=== PATIENT | female | born 1960 | race Caucasian/White ===

== ENCOUNTER → 2022-03-24 | Outpatient (CLI) | payer OTHER ==
--- NOTE | 2022-03-24 12:47 | XR ---
EXAMINATION TYPE: XR lumbar spine 2 or 3V DATE OF EXAM: 03/24/2022 12:27 PM INDICATION: Patient age:Female; 61 years old; Reason for study: M54.50 Low Back pain; COMPARISON: None TECHNIQUE: Frontal and lateral views of the spine. FINDINGS: No evidence of any acute osseous pathology. No evidence of loss of vertebral body height i s seen. There is normal alignment of the lumbar vertebral bodies. Mild scattered disc space narrowing . Multilevel marginal osteophyte formation throughout the visualized spine. There is facet joint arth ropathy throughout the spine. Scattered at least mild neural foraminal stenosis. IMPRESSION: 1. No acute fracture. 2. Mild multilevel disc degeneration.
== END | disposition home or self-care (01) ==
LOC: RADXRMAIN 12:11
PROVIDERS: ATTEND Internal Medicine
DX: M51.36 Other intervertebral disc degeneration, lumbar region (principal)
CPT/HCPCS: 72100

== ENCOUNTER → 2022-03-31 | Outpatient (CLI) | payer OTHER ==
--- NOTE | 2022-03-31 14:45 | USB ---
Reason for Exam: Clinical finding. Patient History: Menarche at age 15. First Full-Term at age 24. Postmenopausal. Risk Values: Samanta 5 year model risk: 1.2%. NCI Lifetime model risk: 6.7%. Technique: Method: Whole Breast Handheld. Prior Study Comparison: 07/15/2006 Bilateral Screening Mammogram, [facility]. Findings: The whole breast of the right breast, the axilla of the right breast and the retroareolar of the right breast were scanned. A complete US of all four quadrants of the breast, axilla, and retro-areolar region were reviewed There is vague hypoechoic irregular area in the 7:00 periareolar region corresponding to the patient's palpable site. Somewhat better viewed with harmonics applied. Estimated measurements of 2.2 x 1.9 x 1.5 cm. Tissue sampling is recommended. No other solid or cystic lesion. A nonenlarged axillary lymph node measures 1.1 x 0.8 cm with cortex measuring 2 mm, acceptable. Overall Assessment: Suspicious, BI-RAD 4 Management: Ultrasound Core Biopsy of the right breast. For the vague, palpable region near the right nipple. Recommend surgical evaluation as well. There is associated nipple retraction and trabecular thickening on mammogram but without a discrete, well formed mass on mammogram. Results were given to the patient verbally at the time of exam. Electronically signed and approved by: Jassi Ayon M.D. Radiologist
--- NOTE | 2022-03-31 14:54 | MM ---
Reason for Exam: Clinical finding. Last mammogram was performed 15 year(s) and 9 month(s) ago. Indicated Problems: Lump or thickening of the right side for 1 Month(s). Patient History: Menarche at age 15. First Full-Term at age 24. Postmenopausal. Risk Values: Samanta 5 year model risk: 1.2%. NCI Lifetime model risk: 6.7%. Prior Study Comparison: 07/15/2006 Bilateral Screening Mammogram, [facility]. Tissue Density: There are scattered fibroglandular densities. Findings: Analyzed By CAD. Asymmetric trabecular thickening throughout the central and lateral aspect of the right breast. Slight nipple retraction on the right. There is a palpable marker also placed anteriorly at the right breast. No well-defined mass is identified. Further ultrasound evaluation is recommended. No significant change on the left side. Overall Assessment: Incomplete: need additional imaging evaluation, BI-RAD 0 Management: Diagnostic Breast Ultrasound of the right breast. Electronically signed and approved by: Jassi Ayon M.D. Radiologist
== END | disposition home or self-care (01) ==
LOC: RADMAMWWP 13:04
PROVIDERS: ATTEND Obstetrics & Gynecology
DX: N64.4 Mastodynia (principal); Z78.0 Asymptomatic menopausal state
CPT/HCPCS: 77062; 77066

== ENCOUNTER → 2022-04-08 | Day surgery (SDC) | payer OTHER ==
--- NOTE | 2022-04-08 15:33 | MM ---
Reason for Exam: Post Procedure Mammogram. Last screening mammogram was performed less than 1 month ago. Patient History: Menarche at age 15. First Full-Term at age 24. Postmenopausal. Risk Values: Samanta 5 year model risk: 1.2%. NCI Lifetime model risk: 6.7%. Prior Study Comparison: 07/15/2006 Bilateral Screening Mammogram, [facility]. 03/31/2022 Bilateral MG 3D diag mammo w/cad [facility], [facility]. Tissue Density: Right: There are scattered fibroglandular densities. Overall Assessment: Post procedure mammogram for marker placement Management: Post Mammogram for Juan Placement of the right breast. Electronically signed and approved by: Dylan Hughes DO
--- NOTE | 2022-04-15 09:38 | USB ---
Risk Values: Samanta 5 year model risk: 1.2%. NCI Lifetime model risk: 6.7%. Prior Study Comparison: 07/15/2006 Bilateral Screening Mammogram, [facility]. 03/31/2022 Bilateral MG 3D diag mammo w/cad [facility], [facility]. Pathology Description: Location: 7 o'clock. Marker Left Behind. Cores: 3 Skin Nicks: 1 Gauge: 18 The procedure of ultrasound guided core biopsy was explained to the patient. Benefits, alternatives, and risks were discussed. An informed consent was then obtained. The patient was placed in supine positioning for imaging and for the procedure. The overlying skin was prepped and draped in usual sterile fashion. Lidocaine buffered with bicarbonate was used as anesthetic into the skin and subcutaneous tissue up to area of concern in the right breast. A madelin was made with surgical scalpel. Under ultrasound guidance, a 18-gauge biopsy device was used to obtain 4 core samples. Following this, a biopsy clip was left in lesion. The patient tolerated the procedure well without any immediate complication. The patient was kept in the radiology department for short stay after the procedure and then discharged home in stable condition. Postprocedure mammogram: The patient was transferred to mammography for physician ordered post procedure mammogram for clip placement verification. Impression: Successful, uncomplicated ultrasound guided core biopsy of area of concern in the right breast, full pathology results to follow. Pathology Results: Result: Malignant, Invasive lobular carcinoma. RIGHT BREAST, ULTRASOUND GUIDED NEEDLE CORE BIOPSY: Invasive lobular carcinoma. See Surgical Pathologic Cancer Case Summary and Comment. Overall Assessment: Malignant Management: Surgical Consultation of the right breast. Electronically signed and approved by: Dylan Hughes DO
== END ==
LOC: RADUSWWP 12:50
PROVIDERS: ATTEND Surgery
DX: C50.911 Malignant neoplasm of unspecified site of right female breast (principal)
CPT/HCPCS: 88305; 88342; 88341; 77065; 19083; A4648

== ENCOUNTER 2022-07-13 06:58 | Day surgery (SDC) | payer BC, OTHER ==
[~2022-07-13 06:58] MED LIST: ACETAMINOPHEN TAB 500 MG TAB PO PRN; DEXAMETHASONE SOD PHOSPHATE 4 MG/ML 1 ML VIAL IV ONE; HEPARIN SODIUM,PORCINE/PF 5,000 UNIT/0.5 ML SYRINGE SQ PRN; LIDOCAINE 1% (10MG/ML) FOR IV START INTRADERMA PRN; MIDAZOLAM 2 MG/2 ML VIAL IV PRN; ONDANSETRON 4 MG/2 ML VIAL IVP ONE; Pre Op ABX Message 1 EACH MISC MISCELLANE ONE
--- NOTE | 2022-07-13 07:22 | P.GSHP ---
History of Present Illness H&P Date: 07/13/22 Chief Complaint: Right breast cancer 61-year-old female known to our service. Patient was diagnosed in March of this year with ER/[place] positive right-sided breast cancer. Pathology showed invasive lobular carcinoma. This was for 2 negative. Radiology studies confirm this to be a large area involving significant volume of the breast. Patient underwent neoadjuvant therapy. Here today for elective surgical resection. No adenopathy seen on ultrasound, physical exam, or on MRI. Past Medical History Past Medical History: Cancer Additional Past Medical History / Comment(s): recent breast cancer dx. right side History of Any Multi-Drug Resistant Organisms: None Reported Past Surgical History: Section Additional Past Surgical History / Comment(s): D & C Past Anesthesia/Blood Transfusion Reactions: Motion Sickness, Postoperative Nausea & Vomiting (PONV) Smoking Status: Never smoker Medications and Allergies Home Medications Medication Instructions Recorded Confirmed Type Tamoxifen [Nolvadex] 20 mg PO DAILY 07/07/22 07/07/22 History Allergies Allergy/AdvReac Type Severity Reaction Status Date / Time Penicillins Allergy Rash/Hives Verified 07/07/22 16:01 Sulfa (Sulfonamide Allergy Swelling Verified 07/07/22 16:01 Antibiotics) Surgical - Exam Physical exam: General: Well-developed, well-nourished HEENT: Normocephalic, sclerae nonicteric Right breast: Mild tenderness outer quadrants, no discrete mass, no adenopathy Left breast: No masses, no adenopathy Abdomen: Nontender, nondistended Extremities: No edema Neuro: Alert and oriented Assessment and Plan (1) Breast cancer, right breast Narrative/Plan: 61-year-old female with right breast invasive lobular carcinoma. We'll proceed with bilateral skin sparing mastectomy with sentinel lymph node biopsy/injection on the right-hand side with concurrent reconstruction by plastic surgery. Current Visit: Yes Status: Acute Code(s): C50.911 - MALIGNANT NEOPLASM OF UNSP SITE OF RIGHT FEMALE BREAST SNOMED Code(s): 665931887
--- NOTE | 2022-07-13 07:27 | P.NAPBC ---
NAPBC Queries - NAPBC Queries Was patient's case review presented at [facility] tumor board? If no, comment.: Yes Was patient's pathology reviewed at [facility]? If no, comment.: Yes Was breast conservation surgery offered? If no, comment.: Yes Was sentinel node biopsy offered? If no, comment.: Yes Was diagnosis confirmed by percutaneous core biopsy? If no, comment.: Yes Is patient mastectomy patient?: Yes Was a preop referral to reconstructive surgeon offered?: Yes Clinical Stage: 2
[2022-07-13] MEDS: LACTATED RINGERS 1,000 ML IV SCH (07:52)
[2022-07-13 08:03] LABS: Basophils % (A) 1 %; Eosinophils # (A) 0.3 k/uL (0-0.7); Eosinophils % (A) 4 %; HCT 39.4 % (34.0-46.0); HGB 12.6 gm/dL (11.4-16.0); Lymphocytes # (A) 2.4 k/uL (1.0-4.8); Lymphocytes % (A) 35 %; MCH 28.7 pg (25.0-35.0); MCV 89.9 fL (80.0-100.0); Mean Platelet Volume 7.7; Monocytes # (A) 0.3 k/uL (0-1.0); Monocytes % (A) 4 %; Neutrophils # (A) 3.6 k/uL (1.3-7.7); Neutrophils % (A) 54 %; Platelet Count 257 k/uL (150-450); RBC 4.38 m/uL (3.80-5.40); RDW 12.7 % (11.5-15.5); WBC 6.7 k/uL (3.8-10.6)
[2022-07-13] MEDS ORDERED: SCOPOLAMINE 1 MG/72 HR PATCH TRANSDERM ONE (08:08)
[2022-07-13 08:19] LABS: African American GFR (CKD) >90 (>60 ml/min/1.73 sqM); Anion Gap 6 mmol/L; Blood Urea Nitrogen 14 mg/dL (7-17); Calcium 9.2 mg/dL (8.4-10.2); Carbon Dioxide 29 mmol/L (22-30); Chloride 105 mmol/L (98-107); Glucose 94 mg/dL (74-99); Non-African American GFR(CKD) 87 (>60 ml/min/1.73 sqM); Potassium 4.1 mmol/L (3.5-5.1); Sodium 140 mmol/L (137-145)
[2022-07-13] MEDS ORDERED: MIDAZOLAM 2 MG/2 ML VIAL IVP ONE (08:31)
[2022-07-13] MEDS ORDERED: LIDOCAINE 2% INJ 20 MG/ML (2 ML VIAL) ONE (08:48)
[2022-07-13] MEDS ORDERED: ceFAZolin 1,000 MG VIAL ONE (08:48)
[2022-07-13] MEDS ORDERED: fentaNYL (PF) 50 MCG/ML 2 ML AMP ONE (08:48)
[2022-07-13] MEDS ORDERED: ROCURONIUM 10 MG/ML (5 ML VIAL) IV ONE (08:48)
[2022-07-13] MEDS ORDERED: SUCCINYLCHOLINE CHLORIDE 200 MG/10 ML VIAL IV ONE (08:48)
[2022-07-13] MEDS ORDERED: SODIUM CHLORIDE 0.9% 100 ML BAG ONE (08:48)
[2022-07-13] MEDS ORDERED: PROPOFOL 10 MG/ML 20 ML VIAL IV ONE (08:48)
[2022-07-13] MEDS ORDERED: MIDAZOLAM 2 MG/2 ML VIAL ONE (08:48)
--- NOTE | 2022-07-13 08:56 | NM ---
EXAMINATION TYPE: NM sentinel node injection DATE OF EXAM: 07/13/2022 COMPARISON: NONE HISTORY: Right-sided breast cancer TECHNIQUE AND FINDINGS: The procedure of sentinel lymph node injection was explained to the patient. The benefits, alternatives, and risks were discussed. An informed consent was then obtained. Overlying skin is cleaned with sterile alcohol. Following this, 481 uCi Tc99m Tilmanocept was inject ed in the upper outer aspect of the right nipple intradermally. The patient tolerated the procedure well without any immediate complication. The patient was kept in the radiology department for short stay after the procedure and then taken to surgery for surgical p rocedure what is presumed intraoperative gamma probe will be used for sentinel lymph node detection. IMPRESSION: Right breast radiotracer injection for sentinel node localization as above.
[2022-07-13] MEDS ORDERED: LACTATED RINGERS 1,000 ML IV ONE (10:44)
[2022-07-13] MEDS ORDERED: HYDROmorphone 0.5 MG/0.5 ML SYRINGE IVP PRN (11:24)
[2022-07-13] MEDS ORDERED: traMADol 50 MG TAB PO PRN (11:24)
[2022-07-13] MEDS ORDERED: ONDANSETRON 4 MG/2 ML VIAL IVP PRN (11:24)
[2022-07-13] MEDS ORDERED: HYDROmorphone 1 MG/ML 1 ML SYRINGE IVP PRN (11:24)
[2022-07-13] MEDS ORDERED: NALOXONE 0.4 MG/ML 1 ML VIAL IV PRN (11:24)
[2022-07-13] MEDS ORDERED: HYDROcodone/APAP 5-325MG 1 EACH TAB PO PRN (11:24)
--- NOTE | 2022-07-13 11:35 | P.OP ---
Date of Procedure: 07/13/22 Procedure(s) Performed: PREOPERATIVE DIAGNOSIS: Right breast cancer POSTOPERATIVE DIAGNOSIS: Same PROCEDURE: Bilateral skin sparing mastectomy with sentinel lymph node biopsy right and breast with concurrent reconstruction SURGEON: Janes EBL: Simin record ANESTHESIA: General COMPLICATIONS: None OPERATIVE PROCEDURE: Patient was placed on the operating room table in the supine position. 2 mL of methylene blue was injected into the right subareolar space. The breast was then massaged for 5 minutes. The upper torso anteriorly was prepped and draped in usual sterile fashion. The left side was first addressed. A skin marker was used to draw out a circular incision around the areola. This incision was then made using the scalpel. Dissection through the subcutaneous tissues took place using electrocautery down to the chest wall circumferentially. The breast was removed from the chest wall at that time. The Ligaclip and clip supervisor claims was used for small visible vessels. No bleeding was encountered. Dr. Mcarthur from plastic surgery then took over on the left chest wall to begin his reconstruction with tissue expanders. The right side was then addressed. A small curvilinear incision in the right axilla took place over the hot spot identified by neoprobe. The subcutaneous tissues were divided using electrocautery and blunt dissection. A total of 4 hot lymph nodes were identified and removed. One of these was blue in color. 2 of the portions of tissue appeared more fatty in nature and may have simply been lymphatics. Grossly these appeared normal. These were sent for permanent sectioning. Subcutaneous tissues at the right axillary incision was closed using 3-0 Vicryl sutures. The skin was closed using a running 3-0 Monocryl suture. In a similar fashion the skin marker was used to draw out the proposed incision around the areola in the right periareolar location. The incision was incised using a scalpel. The skin hooks were utilized and the flaps were raised circumferentially using electrocautery down to the chest wall. The breast was again removed from the chest wall using electrocautery. Small vessels were ligated using the clip supervisor claims or ligature. No bleeding was seen. The right chest wall was then again handed off to Dr. Mcarthur for formal closure and tis marie technical service representative placement. At that point I exited the room. The family was informed of the progress of surgery. DISPOSITION: Patient to remain in the operating for completion and closure by Dr. Mcarthur.
[2022-07-13] MEDS: HYDROmorphone 0.5 MG/0.5 ML SYRINGE IVP PRN ×2 (12:39→13:09)
[2022-07-13] MEDS: D5-0.45% NACL WITH KCL 20MEQ/L 1,000 ML IV SCH (14:28)
[2022-07-13] MEDS: HEPARIN SODIUM,PORCINE/PF 5,000 UNIT/0.5 ML SYRINGE SQ SCH (16:53)
--- NOTE | 2022-07-13 18:47 | OP ---
OPERATIVE REPORT DATE OF SERVICE : 07/13/2022 PREOPERATIVE DIAGNOSES: 1. Acquired loss, right and left breast. 2. Right breast cancer. POSTOPERATIVE DIAGNOSES: 1. Acquired loss, right and left breast. 2. Right breast cancer. PROCEDURES PERFORMED: 1. Immediate reconstruction, left breast following mastectomy with insertion of tissue change management lead and subsequent outpatient expansion. 2. Immediate reconstruction, right breast following mastectomy with insertion of tissue change management lead and subsequent outpatient expansion. 3. Implantation of reconstructive graft for right and left breast reconstruction. INDICATIONS FOR PROCEDURE: The patient is a 61-year-old female with lobular carcinoma of the right breast. She plans to undergo bilateral mastectomy procedures and desires breast reconstruction at the time of her mastectomies. She has been seen and evaluated in consultation in my office and is aware of potential risks and complications related to the surgery including but not limited to seroma, hematoma, and wound healing problems among others. She is also aware of the staged nature of breast reconstructive surgery and the requirement for implant placement after tissue expanders to complete the reconstructive surgery. She has requested I perform the surgery. DESCRIPTION OF PROCEDURE: The patient was seen in the preoperative area. Markings were made. Procedure was reviewed. All questions were answered. She was transported to the operating room, where she was placed in supine position. Following induction of general endotracheal anesthesia, the patient was prepped and draped in usual fashion. Dr. Marrero and his team proceeded with the left-sided mastectomy procedure. Once that was completed, Dr. Marrero and his team proceeded with the right-sided sentinel lymph node excision and mastectomy procedures while I entered the surgery and began the left breast reconstruction. The left mastectomy wound was open. The mastectomy had been performed through a circumareolar approach. The cavity was irrigated. There was no active bleeding. The skin flaps were inspected. They demonstrated excellent viability. At this point, I elected to proceed with a prepectoral style reconstruction. The cavity was measured. Additional dissection was required for optimal positioning of the tissue change management lead, and dissection was performed with cautery where necessary. The cavity was re- sized, and a tissue change management lead was opened onto the field. Both expanders opened today were the same, from the TopiVert tissue change management lead line, model 104S-HR-71-T with a 450 mL volume. The left-sided serial number was [id number], and later when opened, the right- sided serial number was [id number]. The expanders were only handled by the surgeon. The left-sided change management lead was opened. It was irrigated with saline, and all air was extracted. Initially, 300 mL of air was instilled into the device, and it was placed in the left reconstructive cavity for test fit. However, this was too much volume to allow for closure and optimal positioning. The air was reduced to 200 mL on the left, and this appeared optimal for closure and positioning. The change management lead was removed, irrigated. SurgiMend PRS reconstructive graft, thinned and meshed, was opened on the field measuring 15 x 15 cm. The SurgiMend was revitalized in room temperature saline and pre-stretched, and once ready, the SurgiMend was used to cover all anterior surfaces of the tissue change management lead securing to the 6 suture tabs individually with 3-0 Vicryl sutures. As I was observing the procedure proceeding on the right as far as the mastectomy skin flaps, again they had excellent health and appearance of skin flaps. The second change management lead was opened for prepectoral reconstruction. The serial number for the right-sided change management lead was stated above. The change management lead was only handled by the surgeon. All air was extracted. 200 mL of air was instilled. A second piece of SurgiMend reconstructive graft, SurgiMend PRS, measuring 15 x 15 square centimeters was opened on the field. The graft was meshed and tinned. The graft was revitalized in room temperature saline. Once ready, pre-stretched and then secured to the right-sided tissue change management lead covering the anterior surfaces securing the graft to the change management lead in the 6 suture tab locations using 3-0 Vicryl suture. Once the sentinel lymph node mastectomy procedure was completed on the right, both cavities were inspected. Test fitting was performed on the right side with the change management lead, and additional dissection was required to optimize positioning of the change management lead. This was performed with cautery with the change management lead removed. The change management lead was re-irrigated and inserted into the reconstructive cavity. The fit was excellent. The right-sided change management lead was now secured to the chest wall in 6-point locations using the suture tabs with 2-0 Vicryl suture. The left-sided change management lead was inserted into the reconstructive cavity. Once optimally positioned, it was secured to the chest wall in the 6 suture tab locations using 2-0 Vicryl sutures. 19 roslyn Mclean channel drains were opened on the field and inserted into the reconstructive cavity on the right and left sides, brought through separate stab incisions in the anterolateral chest wall, and sutured in place with 3-0 Prolene on each side. The circumareolar incisions for the mastectomy appeared healthy. The wound edges were healthy. A deep layer of subcutaneous tissue was loosely approximated using 4-0 Monocryl here, and then the circumareolar incision was closed in a [place] as a pursestring using 2-0 Prolene deep dermal suture. This was followed by finer approximation of the superficial dermis and epidermis with inverted interrupted 4- 0 Monocryl and then placing renetta. The surgical torrez were cleansed with saline, dried, and covered with postoperative bandages using bacitracin ointment and Kerlix squares secured with 3M Medipore tape. Drain sponges were positioned, and the drains were connected to close bulb suction and patent. A size 2 mammary support was then positioned prior to awakening the patient. The patient was then awakened from her anesthetic, extubated, and transferred to the recovery room in good condition with stable vital signs. The estimated blood loss for this portion of the procedure was 25 mL. Each change management lead was filled to a volume of 200 mL with air. There were no complications. MMODL / IJN: [id number] /
[2022-07-13] MEDS: ACETAMINOPHEN TAB 325 MG TAB PO PRN (21:06)
[2022-07-13] MEDS: FAMOTIDINE 20 MG TAB PO SCH (21:07)
[2022-07-13] MEDS: DOCUSATE 100 MG CAP PO SCH (21:07)
[2022-07-14 00:04] VITALS: RESP 16
[2022-07-14] MEDS: HEPARIN SODIUM,PORCINE/PF 5,000 UNIT/0.5 ML SYRINGE SQ SCH ×2 (00:10→08:04)
[2022-07-14] MEDS: D5-0.45% NACL WITH KCL 20MEQ/L 1,000 ML IV SCH (04:41)
[2022-07-14] MEDS: LACTATED RINGERS 1,000 ML IV SCH (07:43)
[2022-07-14] MEDS: FAMOTIDINE 20 MG TAB PO SCH (08:04)
[2022-07-14] MEDS: DOCUSATE 100 MG CAP PO SCH (08:04)
[2022-07-14] MEDS: ACETAMINOPHEN TAB 325 MG TAB PO PRN ×2 (08:04→14:03)
[2022-07-14 08:20] VITALS: BP 101/63; PULSE 86; TEMP 99.2
--- NOTE | 2022-07-14 14:42 | P.DS ---
Providers Expected date of discharge: 07/14/22 Attending physician: Yury Marrero Consults: 07/13/22 11:24 Consult Physician Routine Consulting Provider: Frank Piña Consult Reason/Comments: med mgmt Do you want consulting provider notified?: Yes Primary care physician: Lisset Wei Hospital Course: Discharge diagnosis 1. Right breast cancer status post Bilateral skin sparing mastectomy with sentinel lymph node biopsy right and breast with concurrent reconstruction Hospital course This is a 61-year-old female with a known history of right breast cancer. She is status post Bilateral skin sparing mastectomy with sentinel lymph node biopsy right and breast with concurrent reconstruction surgery with Dr. Mcarthur. Patient reports her pain is controlled. She is tolerating diet. She is afebri le. Her surgical sites are clean, dry and intact. Skin is healthy and pink color. Patient is stable for discharge. Please refer to chart for any further details. Physician Commuter Train Operator note has been reviewed by physician. Signing provider agrees with the documented findings, assessment, and plan of care. Patient Condition at Discharge: Stable Plan - Discharge Summary Discharge Rx Participant: Yes New Discharge Prescriptions: New traMADol HCl [Ultram] 50 mg PO Q6HR PRN 3 Days #12 tab PRN Reason: Pain Acetaminophen Tab [Tylenol Tab] 650 mg PO Q4H PRN #30 tablet PRN Reason: Pain Continue Tamoxifen [Nolvadex] 20 mg PO DAILY Discharge Medication List Tamoxifen [Nolvadex] 20 mg PO DAILY 07/07/22 [History] Acetaminophen Tab [Tylenol Tab] 650 mg PO Q4H PRN #30 tablet 07/14/22 [Rx] traMADol HCl [Ultram] 50 mg PO Q6HR PRN 3 Days #12 tab 07/14/22 [Rx] Follow up Appointment(s)/Referral(s): Yury Marrero MD [Medical Doctor] - 1 Week Jesus Mcarthur MD [STAFF PHYSICIAN] - 07/17/22 Activity/Diet/Wound Care/Special Instructions: No driving while taking Ultram No lifting over 10 pounds No showers until seen by plastic surgeon. No soaking or tub baths for 2 weeks Very light activity until you are reevaluated at your follow up appointment with your surgeon Keep a log of BILLIE drain output and bring with you to your follow-up appointment Milk/strip drains 2-3 times a day Discharge Disposition: HOME SELF-CARE
--- NOTE | 2022-07-14 14:42 | P.CONS ---
History of Present Illness - Reason for Consult Consult date: 07/14/22 medical management Requesting physician: Yury Marrero - History of Present Illness A pleasant 61-year-old female who admitted for elective bilateral mastectomy with reconstructive surgery. Patient has no significant past medical history was found to have a right breast lump ultimately was found to have right breast cancer. Patient is postoperative day #1 bilateral mastectomy and reconstructive surgery. Patient is evaluated today on the medical floor. She is sitting up in chair, reports on shortness of breath and is having minimal surgical pain. Patient has been tolerating regular diet and reports passing gas. She has been up ambulating to the restroom without difficulty. Patient has had previous issues with n/v after anesthesia. Patient reports no issues no nausea or vomiting. Labs are unremarkable. Patient had a mild hypotension postoperatively with a systolic blood pressure in the 90s x1 which is improving. No dizziness or lightheadedness noted. Patient has been cleared for discharge by primary today. Medically she is stable to go. REVIEW OF SYSTEMS: CONSTITUTIONAL: No fever, no malaise, no fatigue. HEENT: No recent visual problems or hearing problems. Denied any sore throat. CARDIOVASCULAR: No chest pain, orthopnea, PND, no palpitations, no syncope. PULMONARY: No shortness of breath, no cough, no hemoptysis. GASTROINTESTINAL: No diarrhea, no nausea, no vomiting, no abdominal pain. NEUROLOGICAL: No headaches, no weakness, no numbness. HEMATOLOGICAL: Denies any bleeding or petechiae. GENITOURINARY: Denies any burning micturition, frequency, or urgency. MUSCULOSKELETAL/RHEUMATOLOGICAL: Denies any joint pain, swelling, or any muscle pain. ENDOCRINE: Denies any polyuria or polydipsia. The rest of the 14-point review of systems is negative. PHYSICAL EXAMINATION: GENERAL: The patient is alert and oriented x3, not in any acute distress. Well developed, well nourished. HEENT: Pupils are round and equally reacting to light. EOMI. No scleral icterus. No conjunctival pallor. Normocephalic, atraumatic. No pharyngeal erythema. No thyromegaly. CARDIOVASCULAR: S1 and S2 present. No murmurs, rubs, or gallops. PULMONARY: Chest is clear to auscultation, no wheezing or crackles. ABDOMEN: Soft, nontender, nondistended, normoactive bowel sounds. No palpable organomegaly. MUSCULOSKELETAL: No joint swelling or deformity. EXTREMITIES: No cyanosis, clubbing, or pedal edema. NEUROLOGICAL: Gross neurological examination did not reveal any focal deficits. SKIN: No rashes. 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 Medically she is stable and recommend close follow up on discharge. Patient encourage to increase activity level and continue to use incentive spirometer. Thank you kindly for this consultation. The impression and plan of care has been dictated by Amber Lenz Nurse Practitioner as directed. Dr. Issa MD I have performed a history and physical examination and medical decision making of this patient, discussed the same with the dictator, and agree with the dictators assessment and plan as written, documented as a scribe. Based on total visit time, I have performed more than 50% of this visit. Past Medical History Past Medical History: Cancer Additional Past Medical History / Comment(s): recent breast cancer dx. right side History of Any Multi-Drug Resistant Organisms: None Reported Past Surgical History: Section Additional Past Surgical History / Comment(s): D & C Past Anesthesia/Blood Transfusion Reactions: Motion Sickness, Postoperative Nausea & Vomiting (PONV) Past Psychological History: No Psychological Hx Reported Smoking Status: Never smoker Past Alcohol Use History: Rare Past Drug Use History: None Reported - Past Family History Father Family Medical History: No Reported History Medications and Allergies Home Medications Medication Instructions Recorded Confirmed Type Tamoxifen [Nolvadex] 20 mg PO DAILY 07/07/22 07/07/22 History Acetaminophen Tab [Tylenol Tab] 650 mg PO Q4H PRN #30 tablet 07/14/22 Rx traMADol HCl [Ultram] 50 mg PO Q6HR PRN 3 Days #12 tab 07/14/22 Rx Allergies Allergy/AdvReac Type Severity Reaction Status Date / Time Penicillins Allergy Rash/Hives Verified 07/13/22 07:38 Sulfa (Sulfonamide Allergy Swelling Verified 07/13/22 07:38 Antibiotics) Physical Exam Vitals: Vital Signs Temp Pulse Resp BP BP Pulse Ox 07/14/22 08:00 99.2 F 86 16 101/63 99 07/13/22 23:59 98.0 F 62 16 97/59 98 07/13/22 16:00 97.9 F 68 17 106/64 98 07/13/22 15:30 71 15 106/64 97 07/13/22 15:00 82 16 121/73 07/13/22 14:45 98.0 F 61 16 121/75 98 07/13/22 14:30 63 16 132/86 07/13/22 14:15 67 16 116/79 99 07/13/22 14:00 97.2 F L 72 16 144/78 97 07/13/22 13:20 70 16 121/60 100 07/13/22 13:02 73 16 127/64 98 07/13/22 12:47 67 16 133/60 99 07/13/22 12:32 74 16 138/72 100 07/13/22 12:17 78 16 142/68 99 07/13/22 12:02 97.2 F L 76 16 138/65 100 Intake and Output 07/13/22 07/14/22 07/14/22 22:59 06:59 14:59 Intake Total 400 Output Total 675 740 Balance -675 400 -740 Intake: Oral 400 Output: Drainage 25 40 Left 15 20 Right BILLIE 10 20 Urine 650 700 Other: # Voids 1 2 Results CBC & Chem 7: 07/13/22 07:52 07/13/22 07:52 Assessment and Plan Time with Patient: Less than 30
== END 2022-07-14 15:45 | disposition home or self-care (01) ==
LOC: OR 06:58 → 4FBP 12:02 → OR 07-14 15:45
PROVIDERS: ATTEND Surgery
DX: C50.911 Malignant neoplasm of unspecified site of right female breast (principal); Z17.0 Estrogen receptor positive status [ER+]; Z88.0 Allergy status to penicillin; Z88.2 Allergy status to sulfonamides; Z79.899 Other long term (current) drug therapy; Z82.49 Family history of ischemic heart disease and other diseases of the circulatory system; Z80.1 Family history of malignant neoplasm of trachea, bronchus and lung
CPT/HCPCS: 19357; 38525; 97110; 97162; 80048; 85025; 38792; C1889; J2250; J0330; J1100; J2405; J0690; J3010; J1170 ×2; J2704; J1644 ×2; J2001; 88307; 88341; 88342

== ENCOUNTER → 2023-06-01 | Outpatient (CLI) | payer BC ==
--- NOTE | 2023-06-01 19:18 | BD ---
EXAMINATION TYPE: Axial Bone Density DATE OF EXAM: 06/01/2023 CLINICAL HISTORY: 62 years old Female. ICD-10 CODE: C50.111 CARCINOMA OF CENTRAL PORTION OF RIGHT BR EAST Height: 67.25 Weight: 149 FRAX RISK QUESTIONS: Family History (Parent hip fracture): yes History of Fracture in Adulthood: no Secondary Osteoporosis: no RISK FACTORS HISTORY OF: Surgery to Spine/Hip(right/left)/Wrist (right/left): no MEDICATIONS: Thyroid Medications: no Osteoporosis Medications: no EXAM MEASUREMENTS: Bone mineral densitometry was performed using the Ondax System. Bone mineral density as measured about the Lumbar spine is: ----- L1-L4(G/cm2): 1.288 T Score Values are as follows: ----- L1: 0.9 ----- L2: 1.1 ----- L3: 0.7 ----- L4: 0.7 ----- L1-L4: 0.9 Z Score Values are as follows: ----- L1: 2.1 ----- L2: 2.3 ----- L3: 1.9 ----- L4: 1.9 ----- L1-L4: 2.1 Bone mineral density baseline Bone mineral density about the R hip (g/cm2): 0.875 Bone mineral density about the L hip (g/cm2): 0.917 T Score values are as follows: -----R Neck: -1.8 -----L Neck: -1.7 -----R Total: -1.1 -----L Total: -0.7 Z Score values are as follows: -----R Neck: -0.6 -----L Neck: -0.5 -----R Total: -0.2 -----L Total: 0.2 Bone mineral density baseline FRAX%s: The graph provided illustrates a 8.9% chance for a major osteoporotic fx and a 1.0% chance fo r the hips probability for fx in 10 years time. IMPRESSION: Osteopenia (T Score between -2.5 and -1). There is slightly increased risk of fracture and the patient may be considered for treatment. Re-Screen 2-5 years. NOTE: T-SCORE=SD OF THE YOUNG ADULT MEAN.
== END | disposition home or self-care (01) ==
LOC: RADBDWWP 14:49
PROVIDERS: ATTEND Internal Medicine
DX: M85.89 Other specified disorders of bone density and structure, multiple sites (principal); C50.111 Malignant neoplasm of central portion of right female breast
CPT/HCPCS: 77080

== ENCOUNTER → 2023-07-29 | Outpatient (CLI) | payer BC ==
--- NOTE | 2023-07-29 14:01 | XR ---
EXAMINATION TYPE: XR chest 2V DATE OF EXAM: 07/29/2023 COMPARISON: NONE TECHNIQUE: PA and lateral views submitted. HISTORY: Presurgical testing FINDINGS: The lungs are clear and there is no pneumothorax, pleural effusion, or focal pneumonia. Heart size normal and no overt failure. Osseous structures demonstrate hypertrophic and degenerative changes of the spine. Emphysematous changes. Postsurgical change overlying the breasts. Mild osteopenia. IMPRESSION: 1. No acute process.
== END | disposition home or self-care (01) ==
LOC: LABWHC1 13:06
PROVIDERS: ATTEND Anesthesiology
DX: Z01.818 Encounter for other preprocedural examination (principal); C50.919 Malignant neoplasm of unspecified site of unspecified female breast
CPT/HCPCS: 71046

== ENCOUNTER 2023-08-02 10:15 | Day surgery (SDC) | payer BC ==
[~2023-08-02 10:15] MED LIST changes: -ACETAMINOPHEN TAB 500 MG TAB PO PRN; -DEXAMETHASONE SOD PHOSPHATE 4 MG/ML 1 ML VIAL IV ONE; -HEPARIN SODIUM,PORCINE/PF 5,000 UNIT/0.5 ML SYRINGE SQ PRN; -MIDAZOLAM 2 MG/2 ML VIAL IV PRN; -ONDANSETRON 4 MG/2 ML VIAL IVP ONE; -Pre Op ABX Message 1 EACH MISC MISCELLANE ONE; +droPERidol 5 MG/2 ML VIAL IVP PRN
[2023-08-02] MEDS: LACTATED RINGERS 1,000 ML IV SCH (11:00)
[2023-08-02] MEDS: ONDANSETRON 4 MG/2 ML VIAL IVP ONE ×2 (11:05→14:02)
[2023-08-02] MEDS: DEXAMETHASONE SOD PHOSPHATE 4 MG/ML 1 ML VIAL IV ONE (11:05)
[2023-08-02 11:08] VITALS: TEMP 97.8
[2023-08-02] MEDS: SCOPOLAMINE 1 MG/72 HR PATCH TRANSDERM ONE (11:22)
[2023-08-02] MEDS ORDERED: SUCCINYLCHOLINE CHLORIDE 200 MG/10 ML VIAL IV ONE (11:23)
[2023-08-02] MEDS ORDERED: PROPOFOL 10 MG/ML 20 ML VIAL IV ONE (11:23)
[2023-08-02] MEDS ORDERED: fentaNYL (PF) 50 MCG/ML 2 ML AMP ONE (11:23)
[2023-08-02] MEDS ORDERED: MIDAZOLAM 2 MG/2 ML VIAL ONE (11:23)
[2023-08-02] MEDS ORDERED: LIDOCAINE 1% INJ 10MG/ML (20 ML MDV) ONE (11:23)
[2023-08-02] MEDS: CLINDAMYCIN 900 MG in DEXTROSE 5% IN WATER 50 ML IVPB STA (11:25)
[2023-08-02] MEDS: HYDROmorphone 0.5 MG/0.5 ML SYRINGE IVP PRN (13:17)
[2023-08-02] MEDS ORDERED: HYDROcodone/APAP 5-325MG 1 EACH TAB PO STA (13:38)
[2023-08-02] MEDS ORDERED: ONDANSETRON 4 MG/2 ML VIAL ONE (14:02)
[2023-08-02] MEDS: DEXAMETHASONE SOD PHOSPHATE 4 MG/ML 1 ML VIAL IVP ONE (14:04)
[2023-08-02 15:03] VITALS: BP 120/74; PULSE 64; RESP 17
--- NOTE | 2023-08-02 21:09 | OP ---
OPERATIVE REPORT DATE OF SERVICE : 08/02/2023 PREOPERATIVE DIAGNOSES: 1. Acquired loss right and left breast. 2. Personal history of breast cancer, right breast. 3. Acquired deformity, right and left reconstructed breast. 4. Acquired loss right and left breast inframammary fold. 5. Delayed effects of radiation therapy, right breast. POSTOPERATIVE DIAGNOSES: 1. Acquired loss right and left breast. 2. Personal history of breast cancer, right breast. 3. Acquired deformity, right and left reconstructed breast. 4. Acquired loss right and left breast inframammary fold. 5. Delayed effects of radiation therapy, right breast. OPERATIVE PROCEDURES: 1. Replacement of right breast tissue counter installer with silicone breast implant for right breast reconstruction. 2. Revision of right reconstructed breast. 3. Replacement of left reconstructed breast tissue counter installer with silicone breast implant for left breast reconstruction. 4. Revision of left reconstructed breast. 5. Reconstruction right and left breast inframammary fold via local advancement flap, 63 sq cm. OPERATIVE INDICATIONS: The patient is a 62-year-old female who has undergone therapeutic mastectomy of the right breast and prophylactic mastectomy of the left breast for treatment of invasive cancer of the right breast. She required chemotherapy as well as radiation treatments. At the time of her mastectomy procedure, initiated breast reconstruction and a tissue counter installer technique was initiated. She did complete expansion prior to radiation treatments, but then required some additional expansion after radiation therapy as well. She has also waited over 6 months to proceed with today's surgery. In this stage of the reconstruction, the expanders were placed with silicone breast implants. The patient is aware of potential risks and complications related to silicone breast implants. Additionally, revision of the breast, optimize shape and form and reconstruction of inframammary folds will be accomplished. She is aware of potential risks and complications related to surgery such as hematoma, seroma, infection, wound healing problems, among others. She has requested perform the surgery. OPERATIVE PROCEDURE SUMMARY: The patient was seen is in the preoperative area, markings made, procedure reviewed. All questions answered. She was transported to the operating room, where she was placed in supine position. Following induction of general endotracheal anesthesia, the patient was prepped and draped in usual fashion. Remaining on the right side and following the transverse incision at the mastectomy scars site that was marked preoperatively, incision made, dividing the skin in full-thickness fashion using scalpel and then using cauterization device. Subcutaneous tissue until identifying the underlying graft layer. Skin and subcutaneous tissue flaps were elevated off the graft layer. Extensive dissection required to release contour irregularities and optimize shape and form with placement of implant. With this extensive dissection completed, incision was made in transverse fashion through the capsular layer exposing the counter installer. Second incision was made transverse but offset inferiorly by several centimeters. The counter installer was removed, intact. The expansion cavity appeared normal with no granulation tissue. No exudates with some serous fluid. Complete capsulotomy incision was made where the capsule joined the chest wall, the multiple cruciate incisions through the capsular structure to release tightness. Additional dissection was required superiorly, medially, and lateral to optimize the space for a breast implant. The hemostasis maintained with cautery. Irrigation was performed with saline. Excellent hemostasis was present. The site was packed open with multiple laparotomy sponges. Attention was turned towards the left side. Again, transverse incision made were diagrammed using scalpel dividing the skin in full-thickness fashion and cautery to divide subcutaneous tissue until identifying the underlying graft, capsular layer. The skin and subcutaneous tissue flaps were now elevated off, this extensive dissection was required on the left side as was on the right to release contour irregularities and optimize shape and form with placement of the implant. With this extensive dissection completed, transverse incision was made through the capsular graft layer offset inferiorly. The incision was made with cautery exposing the counter installer, counter installer was removed intact. Expansion cavity also appeared normal with no granulation tissue. No exudates but some serous fluid. Complete capsulotomy incision was made where the capsule joined the chest wall, multiple cruciate incisions through the capsular structure to release tightness. Additional dissection was required medially and superiorly for this side, but not laterally. Irrigations performed, hemostasis was excellent. Inframammary folds were now reconstructed on each side. Each fold measured 21 x 1.5 sq cm and was elevated through the inferior capsulotomy incision elevating skin and subcutaneous tissue in a cephalad fashion. Once the flaps were elevated, they were advanced in cephalad fashion, secured to rib periosteal tissue using interrupted 2-0 Vicryl and 3-0 Vicryl sutures. The inframammary fold appeared symmetrical and well defined. Irrigations performed. Hemostasis excellent. Temporary breast implant Sizer was opened on the field. Ultimately, 545 mL sizer demonstrate the best appearance with the patient seated up position and the incisions temporally closed with renetta. She has returned to supine position. [place] removed and temporary breast implant sizers removed, and the each reconstructive cavity was now irrigated. Hemostasis was excellent on both sides. Gloves not changed. Breast implants were opened on the field. Both implants were same today, from the [place] MemoryGel Boost breast implant line, smooth high-profile silicone gel filled breast implants measuring 545 ml, reference number is [id number] and serial number for the left side was [id number] and later when opened, the serial number on the right side was [id number]. The implants were not handled. They were irrigated with saline once opened and then placed into the reconstructive cavity using Dempsey funnel no-touch technique. The capsular layer was then closed over the implant on the left using interrupted 3-0 Vicryl sutures. Attention is turned towards the right side. The right-sided implant was open. Again using a Dempsey funnel no-touch technique after irrigating the implant with saline, it was passed in the Dempsey funnel, then into the reconstructive cavity. Again, the graft capsular layer was approximated over the implant and secured using interrupted 3-0 Vicryl sutures. The skin incision was now closed on each side approximating deep dermis using inverted interrupted 4-0 Monocryl and then closing the superficial dermis and epidermis with short running 5-0 Prolene. The surgical torrez were cleansed with saline, dried, and postoperative bandages were placed using sterile 1 inch paper tape over suture repairs followed by Kerlix squares secured with 3 Medipore tape in position, size 3 white mammary support with additional gauze padding to the lateral aspect of each breast reconstruction. The patient is awakened from anesthetic and transferred to recovery room in good condition with stable vital signs. ESTIMATED BLOOD LOSS: 30 cc. COMPLICATIONS: There were no complications. MMODL / IJN: [id number] /
== END 2023-08-02 15:30 | disposition home or self-care (01) ==
LOC: OR 10:15
PROVIDERS: ATTEND Plastic Surgery
DX: Z40.01 Encounter for prophylactic removal of breast (principal); N64.89 Other specified disorders of breast; J45.909 Unspecified asthma, uncomplicated; K21.9 Gastro-esophageal reflux disease without esophagitis; F17.200 Nicotine dependence, unspecified, uncomplicated; Z85.3 Personal history of malignant neoplasm of breast; Z88.1 Allergy status to other antibiotic agents; Z88.0 Allergy status to penicillin; Z88.2 Allergy status to sulfonamides
CPT/HCPCS: 19380; 14301; 14302; C1789; J2250; J0330; J1100; J2405; J2001; J3010; J2704; J1170; J0736

== ENCOUNTER → 2024-05-24 | Outpatient (CLI) | payer BC ==
--- NOTE | 2024-05-24 20:58 | MR ---
EXAMINATION TYPE: MR hip LT wo/w con DATE OF EXAM: 05/24/2024 8:29 PM CLINICAL INDICATION: Female, 63 years old with history of C50.111 MALIGNANT NEOPLASM OF CENTRAL PORTI ON OF R, breast cancer, left hip pain COMPARISON: 05/12/2024 TECHNIQUE: Multiplanar multi-sequential magnetic resonance imaging of the hip without contrast. IV Contrast: 7 mL Gadobutrol FINDINGS: Joint spaces and alignment: Normal Joint/bursal fluid: Normal Articular cartilage: Normal Acetabular labrum: Mild degenerative labrum without displaced tear on arthrogram technique. Muscles/Tendons: Mild increased signal within the gluteus medius tendon near its insertion on the gre ater trochanter. The tendons of the gluteal, hamstring, iliopsoas, and adductors are normal in within normal limits without evidence for edema and are intact. Intrapelvic structures: Normal Neurovascular structures: Normal Marrow: The femoral heads demonstrates normal morphology and signal characteristics. Mild bony edema in the superior acetabulum and around the superior acetabulum. There is no evidence of fracture. No i ntraosseous mass identified. The sacroiliac joints and pubic symphysis are noted to be unremarkable. Soft tissues: Tortuous vessels are seen on the posterior aspect of the left hip.e Other: The ovaries, uterus, and urinary bladder are unremarkable. No lymphadenopathy is visualized. Postcontrast imaging demonstrates mild enhancement around the left superior acetabulum/ IMPRESSION: 1. Mild bony edema an enhancement around the superior left acetabulum suggest active inflammation. F indings could be on degenerative basis or if it history of trauma a small nondisplaced fracture of th e superior acetabulum. 2. No evidence for fracture. No abnormal bony lesion. No evidence for metastatic disease in the fiel d-of-view. 3. Mild degeneration of the labrum. [facility], , 05/24/2024 8:56 PM
--- NOTE | 2024-05-24 21:05 | MR ---
EXAMINATION TYPE: MR lumbar spine wo/w con DATE OF EXAM: 05/24/2024 8:28 PM COMPARISON: 03/24/2022. CLINICAL INDICATION: Female, 63 years old with history of C50.111 MALIGNANT NEOPLASM OF CENTRAL PORTI ON OF R; PHH, breast cancer, low back pain that radiates into left hip and down leg TECHNIQUE: Multi planar, multi sequence imaging was performed utilizing: T1-weighted, T2-weighted, a nd turbo inversion recovery imaging of the lumbar spine. IV Contrast: 7 mL Gadobutrol (None, if empty) FINDINGS: Alignment: The lumbar vertebral bodies have preserved heights and alignment. Cord: The conus medullaris and the distal spinal cord appear unremarkable with regards to their signa l intensity and morphology. Bones/Discs: Mild degeneration changes throughout the spine with osteophyte formation and facet joint arthropathy. Intervertebral disc signal is maintained. No abnormal inversion recovery signal to sugg est bony edema. T12-L1: No evidence of significant spinal canal stenosis or neural foraminal stenosis. L1-L2: No evidence of significant spinal canal stenosis or neural foraminal stenosis. L2-L3: No evidence of significant spinal canal stenosis or neural foraminal stenosis. L3-L4: No evidence of significant spinal canal stenosis or neural foraminal stenosis. L4-L5: No evidence of significant spinal canal stenosis or neural foraminal stenosis. L5-S1: The disc has a rounded posterior morphology without significant spinal canal stenosis. Facet j oint arthropathy with mild bilateral neural foraminal stenosis. No significant spinal canal or neural foraminal stenosis in the remainder of the visualized levels. Other findings: No abnormal postcontrast enhancement. IMPRESSION: 1. No definitive evidence of disc herniation or significant spinal canal stenosis. No abnormal postc ontrast enhancement. 2. Mild disc degeneration with associated osteoarthritic changes. [facility], , 05/24/2024 9:03 PM
== END | disposition home or self-care (01) ==
LOC: RADMRIMAIN 18:40
PROVIDERS: ATTEND Internal Medicine
DX: C50.111 Malignant neoplasm of central portion of right female breast (principal); M51.360 Other intervertebral disc degeneration, lumbar region with discogenic back pain only; M47.816 Spondylosis without myelopathy or radiculopathy, lumbar region
CPT/HCPCS: 72158; 73723; A9585

== ENCOUNTER → 2024-06-30 | Outpatient (CLI) | payer BC ==
--- NOTE | 2024-07-01 14:37 | MR ---
EXAMINATION TYPE: MR liver wo/w con DATE OF EXAM: 06/30/2024 9:26 PM COMPARISON: None available this institution. CLINICAL INDICATION: Female, 63 years old with history of C50.111 MALIGNANT NEOPLASM OF CENTRAL PORTI ON OF R; PHH, Breast cancer, Abnormal CT Abd; liver lesion TECHNIQUE: Multiplanar multi-sequence imaging was performed without contrast. Post contrast imaging was performed. Post IV contrast subtraction images were also submitted for review. IV Contrast: 7 mL Gadobutrol FINDINGS: LOWER CHEST: Partially visualized surgical changes in the right breast and left breast implant in tim ce. ABDOMEN Liver: No evidence for hepatic steatosis or cirrhosis. No discrete liver lesion identified or convinc ing evidence of hepatic metastatic disease. Gallbladder and Bile ducts: No evidence for ductal dilation, or biliary stricture or evidence of chol edocholithiasis. The gallbladder is within normal limits. Pancreas: No ductal dilation. No evidence for solid mass. Spleen: Normal for size. Adrenal glands: Unremarkable. Kidneys: No evidence for obstructive uropathy. No suspicious renal masses. Stomach and Bowel: No evidence for bowel wall thickening or evidence for obstruction. Retroperitoneum/Peritoneum: No evidence of pneumoperitoneum or free fluid. Vasculature: No aortic aneurysm. Musculoskeletal: The osseous structures appear intact. Lymph Nodes: No gross evidence for lymphadenopathy. Abdominal wall: Unremarkable. IMPRESSION: No discrete suspicious liver lesion identified or convincing MR evidence of metastatic disease in the abdomen. [facility], , 07/01/2024 2:35 PM
== END | disposition home or self-care (01) ==
LOC: RADMRIMAIN 20:45
PROVIDERS: ATTEND Internal Medicine
DX: C50.111 Malignant neoplasm of central portion of right female breast (principal); K76.9 Liver disease, unspecified; Z85.3 Personal history of malignant neoplasm of breast
CPT/HCPCS: 74183; A9585